=== PATIENT | male | born 1960 | race Caucasian/White ===

== ENCOUNTER → 2018-05-25 17:13 | Emergency (ER) | payer BC ==
[2018-05-25] MEDS: ONDANSETRON 4 MG INJ IV ×2 (10:03→14:39)
[2018-05-25] MEDS: HYDROmorphONE 1 MG/ML SYG IV ×2 (10:04→11:02)
[2018-05-25] MEDS: SOD CHLORIDE 0.9% 1,000 ML IV (10:04)
[2018-05-25 10:05] LABS: ADD MAN DIFF? NO
[2018-05-25 10:20] LABS: WHITE BLOOD COUNT 12.8 10^3/ul (4.8-10.8)
[2018-05-25 10:20] LABS: BASOPHIL # 0.1 10^3/ul (0.0-0.1); BASOPHILS % 0.4 % (0.0-2.0); EOSINOPHILS % 0.3 % (0.0-7.0); HEMATOCRIT 43.2 % (42.0-52.0); HEMOGLOBIN 15.1 g/dl (14.0-18.0); LYMPHOCYTES # 1.7 10^3/ul (0.8-2.9); LYMPHOCYTES % 13.4 % (15.0-51.0); MEAN CORPUSCULAR HEMOGLOBIN 30.8 pg (29.0-33.0); MEAN CORPUSCULAR VOLUME 88.2 fl (82.0-101.0); MONOCYTE # 0.8 10^3/ul (0.3-0.9); MONOCYTES % 6.5 % (0.0-11.0); NEUTROPHIL # 10.1 10^3/ul (1.6-7.5); NEUTROPHILS % 78.8 % (39.0-77.0); PLATELET COUNT 246 10^3/UL (140-415); RED CELL DISTRIBUTION WIDTH 13.2 % (11.5-14.5)
[2018-05-25 10:37] LABS: INR 0.96; PROTIME 12.9 Sec (11.9-14.9)
[2018-05-25 10:38] LABS: ALANINE AMINOTRANSFERASE 33 IU/L (13-69); ALBUMIN 3.9 g/dl (3.3-4.9); ALBUMIN/GLOBULIN RATIO 1.39; ALKALINE PHOSPHATASE 47 IU/L (42-121); AMYLASE 47 U/L (11-123); ANION GAP 14 (8-16); ASPARTATE AMINO TRANSFERASE 27 IU/L (15-46); BILIRUBIN,INDIRECT 0.5 mg/dl (0-1.1); BILIRUBIN,TOTAL 0.5 mg/dl (0.2-1.3); BLOOD UREA NITROGEN 17 mg/dl (7-20); CALCIUM 9.1 mg/dl (8.4-10.2); CARBON DIOXIDE 21 mmol/L (21-31); CHLORIDE 110 mmol/L (97-110); CREATININE 1.19 mg/dl (0.61-1.24); GLUCOSE 116 mg/dl (70-220); LIPASE 165 U/L (23-300); PARTIAL THROMBOPLASTIN TIME 24.9 Sec (25.0-35.0); POTASSIUM 4.3 mmol/L (3.5-5.1); SODIUM 141 mmol/L (135-144); TOTAL PROTEIN 6.7 g/dl (6.1-8.1)
[2018-05-25 10:50] LABS: TROPONIN-I < 0.010 ng/ml (0.000-0.120)
[2018-05-25] MEDS: IOHEXOL 300MG/ML 150 ML BTL (11:59)
[2018-05-25] MEDS: SOD CHLORIDE 0.9% 100 ML (11:59)
[2018-05-25 13:56] LABS: ADD UMIC YES; UR ASCORBIC ACID NEGATIVE (NEGATIVE); UR BACTERIA FEW /HPF (NONE SEEN); UR BILIRUBIN (Dip) NEGATIVE (NEGATIVE); UR BLOOD (Dip) 3+ mg/dL (NEGATIVE); UR CLARITY SLIGHTLY CLOUDY (CLEAR); UR COLOR YELLOW (YELLOW); UR GLUCOSE (Dip) NEGATIVE (NEGATIVE); UR KETONES (Dip) TRACE mg/dL (NEGATIVE); UR LEUKOCYTE ESTERASE (Dip) NEGATIVE Leu/ul (NEGATIVE); UR MUCUS FEW /HPF (NONE SEEN); UR NITRITE (Dip) NEGATIVE (NEGATIVE); UR RBC > 182 /HPF (0-5); UR SPECIFIC GRAVITY (Dip) 1.044 (1.003-1.030); UR TOTAL PROTEIN (Dip) 2+ mg/dl (NEGATIVE); UR UROBILINOGEN (Dip) NEGATIVE (NEGATIVE); UR WBC 14 /HPF (0-5)
[2018-05-25] MEDS: HYDROmorphONE 2 MG/ML SYG IV (14:23)
== END | disposition short-term general hospital (02) ==
DX: S22.42XA Multiple fractures of ribs, left side, initial encounter for closed fracture (principal); S37.092A Other injury of left kidney, initial encounter; S30.1XXA Contusion of abdominal wall, initial encounter; F17.210 Nicotine dependence, cigarettes, uncomplicated; R40.2142 Coma scale, eyes open, spontaneous, at arrival to emergency department; R40.2252 Coma scale, best verbal response, oriented, at arrival to emergency department; R40.2362 Coma scale, best motor response, obeys commands, at arrival to emergency department; W01.0XXA Fall on same level from slipping, tripping and stumbling without subsequent striking against object, initial encounter; Y92.9 Unspecified place or not applicable
CPT/HCPCS: 36415; 70450; 72131; 74177; 80053; 80307; 81001; 82150; 83690; 84484; 85025; 85610; 85730; 93005; 96374; 96375; 96376; 99291-25